=== PATIENT | female | born 1980 | race African-American/Black ===

== ENCOUNTER → 2019-01-14 | Outpatient (CLI) | payer OTHER | LOC: ULTRA 01:32 → BC 01:32 → ULTRA 11:42 | DX: Z12.31 Encounter for screening mammogram for malignant neoplasm of breast (principal); E04.2 Nontoxic multinodular goiter; E07.89 Other specified disorders of thyroid ==

== ENCOUNTER → 2020-01-16 | Outpatient (CLI) | payer OTHER | LOC: RAD 14:17 | PROVIDERS: ATTEND Nurse Practitioner | DX: Z12.31 Encounter for screening mammogram for malignant neoplasm of breast (principal) ==

== ENCOUNTER → 2020-02-28 | Outpatient (CLI) | payer OTHER | LOC: LAB 14:07 | PROVIDERS: ATTEND Nurse Practitioner | DX: Z20.828 Contact with and (suspected) exposure to other viral communicable diseases (principal) ==

== ENCOUNTER → 2021-02-23 | Outpatient (CLI) | payer OTHER | LOC: BC 15:44 | PROVIDERS: ATTEND Nurse Practitioner | DX: Z12.31 Encounter for screening mammogram for malignant neoplasm of breast (principal); N64.89 Other specified disorders of breast ==